=== PATIENT | male | born 1990 | race Hispanic/Latino ===

== ENCOUNTER 2017-06-14 17:06 | Emergency (ER) | payer SELFPAY ==
[2017-06-14] MEDS ORDERED: CEPHALEXIN500 M1 PO (18:21)
[2017-06-14] MEDS ORDERED: no home meds (18:52)
[2017-06-14 18:53] VITALS: BP 118/71
== END 2017-06-14 18:53 | disposition home or self-care (01) | DRG 605 ==
LOC: ED 17:06
PROC: 0HQFXZZ Repair Right Hand Skin, External Approach (ICD-10-PCS; principal; 2017-06-14)
DX: S61.216A Laceration without foreign body of right little finger without damage to nail, initial encounter (principal); W26.0XXA Contact with knife, initial encounter; Y93.89 Activity, other specified; Y92.009 Unspecified place in unspecified non-institutional (private) residence as the place of occurrence of the external cause